=== PATIENT | male | born 1960 | race African-American/Black ===

== ENCOUNTER 2020-10-27 13:21 | Emergency (ER) | payer BC ==
[~2020-10-27] VITALS: Ht 182.9 cm; Wt 77.1 kg
[2020-10-27 15:55] LABS: ABSOLUTE NEUTROPHILS 8.4 thou/uL (1.4-8.2); BASOPHILS 0.3 % (0.0-2.0); EOSINOPHILS 0.1 % (0.0-3.0); HEMATOCRIT 38.8 % (42.0-52.0); HEMOGLOBIN 12.2 gm/dL (14.0-18.0); LYMPHOCYTES 18.3 % (24.0-44.0); MCH 24.8 pg (26.0-34.0); MCHC 31.5 g/dL (28.0-37.0); MCV 78.6 fL (80.0-100.0); MONOCYTES 3.5 % (1.0-8.0); PLATELET COUNT 307 thou/uL (150-400); POLYS 77.8 % (36.0-66.0); RBC 4.94 mil/uL (4.50-6.00); RDW 15.2 % (10.5-14.5); WBC 10.7 thou/uL (4.0-11.0)
[2020-10-27 16:05] LABS: URINE BILIRUBIN NEGATIVE (Negative); URINE BLOOD NEGATIVE (Negative); URINE CLARITY CLEAR; URINE COLOR YELLOW; URINE GLUCOSE-RANDOM* NEGATIVE (Negative); URINE KETONES 1+ (Negative); URINE LEUKOCYTES-REFLEX NEGATIVE (Negative); URINE NITRITE-REFLEX NEGATIVE (Negative); URINE PROTEIN (DIPSTICK) NEGATIVE (Negative)
[2020-10-27 16:13] LABS: CALCIUM 9.3 mg/dL (8.5-10.1); POTASSIUM 3.7 mmol/L (3.5-5.1)
[2020-10-27 16:35] VITALS: BP 151/97
== END 2020-10-27 16:36 | disposition home or self-care (01) ==
LOC: ER 13:21
PROVIDERS: Nurse Practitioner
DX: R53.83 Other fatigue (principal); N28.89 Other specified disorders of kidney and ureter